=== PATIENT | male | born 1975 | race Caucasian/White ===

== ENCOUNTER 2020-06-07 02:27 | Emergency (ER) | payer OTHER ==
[~2020-06-07 02:27] MED LIST: NORCO 5-325 TA1 EAC1 PO; NORCO 5-325 TA1 EACH PO
[2020-06-07 03:32] LABS: PROTHROMBIN TIME 14.4 SECONDS (11.4-13.6); PTT 28.3 SECONDS (22.2-34.7)
[2020-06-07 03:33] LABS: D-DIMER < 0.27 ug/mLFEU (0.00-0.41)
[2020-06-07 03:35] LABS: BASOPHIL 0.6 % (0-2); EOSINOPHIL 0.2 % (0-5); HCT 45.5 % (42.0-52.0); HGB 15.9 g/dl (13.2-18.0); LYMPHOCYTE 20.6 % (15-48); MCH 33.3 pg (25.0-31.0); MCHC 34.9 g/dL (32.0-36.0); MCV 95.2 fL (78.0-100.0); MONOCYTE 7.9 % (0-12); MPV 9.7 fL (6.0-9.5); NEUTROPHIL 69.7 % (41-80); NRBC 0; PLT 200 K/uL (150-400); RBC 4.78 M/uL (4.70-6.00); RDW 12.2 % (11.5-14.0)
[2020-06-07 04:52] LABS: ALBUMIN 3.5 g/dL (3.4-5.0); ALKALINE PHOSHATASE 35 U/L (46-116); ALT 56 U/L (16-63); AST 31 U/L (15-37); BILIRUBIN - TOTAL 0.7 mg/dL (0.2-1.0); BUN 6 mg/dL (7-18); BUN/CREAT RATIO (CALC) 6.3 RATIO; CHLORIDE 101 mmol/L (98-107); CO2 (BICARBONATE) 27 mmol/L (21-32); CREATININE 0.95 mg/dL (0.67-1.17); GLOBULIN (CALCULATION) 4.1 g/dL; GLUCOSE 104 mg/dL (74-106); MAGNESIUM 1.5 mg/dL (1.8-2.4); PHOSPHORUS 2.9 mg/dL (2.6-4.7); POTASSIUM 4.3 mmol/L (3.5-5.1); TOTAL PROTEIN 7.6 g/dL (6.4-8.2)
[2020-06-07 04:54] LABS: C-REACTIVE PROTEIN < 0.20 mg/dL (<=0.90)
== END 2020-06-07 06:10 | disposition home or self-care (01) ==
LOC: FER 02:27
PROVIDERS: Emergency Medicine Emergency Medical Services
DX: R20.2 Paresthesia of skin (principal); R00.2 Palpitations; M62.831 Muscle spasm of calf; I45.10 Unspecified right bundle-branch block; Z86.718 Personal history of other venous thrombosis and embolism; Z86.711 Personal history of pulmonary embolism; Z79.01 Long term (current) use of anticoagulants
CPT/HCPCS: 36415; 71045; 80053; 83735; 84100; 84484; 85025; 85379; 85610; 85730; 86140; 93005; J3360; J7120

== ENCOUNTER 2021-04-14 17:06 | Emergency (ER) | payer OTHER ==
[2021-04-14] MEDS ORDERED: CEPHALEXIN250 MG PO (17:32)
== END 2021-04-14 17:45 | disposition home or self-care (01) ==
LOC: FER 17:06
DX: T81.30XA Disruption of wound, unspecified, initial encounter (principal)
CPT/HCPCS: 87070; 87186; 87205; 99283